=== PATIENT | male | born 1945 | race Caucasian/White ===

== ENCOUNTER 2023-04-21 12:43 | Outpatient (CLI) | payer MEDICARE, BC ==
[2023-04-21] MEDS ORDERED: Magnevist 469MG/ML 20 ML VIAL ONE (13:36)
== END 2023-04-21 12:44 | disposition home or self-care (01) ==
LOC: CSHMRI 12:43
PROVIDERS: ATTEND Urology
DX: R97.20 Elevated prostate specific antigen [PSA] (principal)
CPT/HCPCS: 72197; A9579